=== PATIENT | female | born 1945 | race Caucasian/White ===

== ENCOUNTER 2021-06-06 14:39 | Emergency (ER) | payer MEDICARE ==
[2021-06-06 15:51] LABS: HEMOGLOBIN 15.8 gm/dl (12.3-15.3); RED BLOOD COUNT 5.23 M/UL (4.00-5.10); WHITE BLOOD COUNT 8.4 K/UL (4.5-11.0)
[2021-06-06 16:18] LABS: BUN/CREATININE RATIO 18 (0-10)
== END 2021-06-06 20:07 | disposition home or self-care (01) ==
LOC: ER1 14:39
PROVIDERS: Emergency Medicine
DX: R10.9 Unspecified abdominal pain (principal); E11.9 Type 2 diabetes mellitus without complications; I10 Essential (primary) hypertension; F17.200 Nicotine dependence, unspecified, uncomplicated
CPT/HCPCS: 80053; 81001; 83605; 83690; 85025; 96374; 96375; 99284; J2270; J2405; Q9967